=== PATIENT | male | born 1950 | race Caucasian/White ===

== ENCOUNTER 2021-04-11 09:43 | Emergency (ER) | payer MEDICARE, OTHER ==
[2021-04-11 09:54] VITALS: RESP 18; TEMP 97.1
--- NOTE | 2021-04-11 10:41 | ED ---
Male Urogenital HPI - General Chief complaint: Urogenital Stated complaint: Blood in Urine Time Seen by Provider: 04/11/21 09:53 Source: patient, RN notes reviewed Mode of arrival: ambulatory Limitations: no limitations - History of Present Illness Initial comments: This is a 70-year-old male with a prior history of prostate cancer status post radiation therapy about a year ago also history of a urinary aneurysm with a stent placement who states he developed hematuria this morning with dark colored bloody urine. He has some nausea generally doesn't feel well. The patient denies any history kidney stones or any problems other than the prostate cancer. He does have some suprapubic discomfort he states. Patient does state he is a decreased appetite is somewhat of an upset stomach recently over last week he's had some fever and sweats. No overt vomiting shortness breath or other complaints or modifying factors patient is not on blood thinners she does take aspirin - Related Data Home Medications Medication Instructions Recorded Confirmed Aspirin EC [Ecotrin Low Dose] 81 mg PO DAILY 04/11/21 04/11/21 Carvedilol [Coreg] 3.125 mg PO BID 04/11/21 04/11/21 Furosemide [Lasix] 20 mg PO DAILY PRN 04/11/21 04/11/21 Previous Rx's Medication Instructions Recorded Metoclopramide [Reglan] 10 mg PO ACHS #20 tab 04/11/21 Allergies Allergy/AdvReac Type Severity Reaction Status Date / Time No Known Allergies Allergy Verified 04/11/21 12:24 Review of Systems ROS Statement: Those systems with pertinent positive or pertinent negative responses have been documented in the HPI. ROS Other: All systems not noted in ROS Statement are negative. Past Medical History Past Medical History: Hypertension Additional Past Medical History / Comment(s): Prostate CA- History of Any Multi-Drug Resistant Organisms: None Reported Past Surgical History: Back Surgery, Coronary Bypass/CABG Additional Past Surgical History / Comment(s): AAA-repaired Past Psychological History: No Psychological Hx Reported Smoking Status: Former smoker Past Alcohol Use History: Rare Past Drug Use History: None Reported General Exam - General Exam Comments Initial Comments: This is a well-developed asthenic appearing male who is awake alert oriented 3 Limitations: no limitations General appearance: alert, in no apparent distress Head exam: Present: atraumatic, normocephalic, normal inspection Eye exam: Present: normal appearance, PERRL, EOMI. Absent: scleral icterus, conjunctival injection, periorbital swelling ENT exam: Present: normal exam, mucous membranes moist Neck exam: Present: normal inspection. Absent: tenderness, meningismus, lymphadenopathy Respiratory exam: Present: normal lung sounds bilaterally. Absent: respiratory distress, wheezes, rales, rhonchi, stridor Cardiovascular Exam: Present: regular rate, normal rhythm, normal heart sounds. Absent: systolic murmur, diastolic murmur, rubs, gallop, clicks GI/Abdominal exam: Present: soft, normal bowel sounds. Absent: distended, tenderness, guarding, rebound, rigid, bruit, pulsatile mass Extremities exam: Present: normal inspection, full ROM, normal capillary refill. Absent: tenderness, pedal edema, joint swelling, calf tenderness Back exam: Present: normal inspection Neurological exam: Present: alert, oriented X3, CN II-XII intact Psychiatric exam: Present: normal affect, normal mood Skin exam: Present: warm, dry, intact, normal color. Absent: rash Course Vital Signs 04/11/21 04/11/21 09:49 12:06 Temperature 97.1 F L Pulse Rate 85 75 Respiratory 18 18 Rate Blood Pressure 155/94 O2 Sat by Pulse 98 98 Oximetry Medical Decision Making - Medical Decision Making I did discuss the findings with the patient and with Dr. Lopes. Patient will follow-up, and the office will call and make an appointment - Lab Data Result diagrams: 04/11/21 11:43 04/11/21 10:46 Lab Results 04/11/21 04/11/21 04/11/21 Range/Units 10:46 10:46 10:46 WBC (3.8-10.6) k/uL RBC (4.30-5.90) m/uL Hgb (13.0-17.5) gm/dL Hct (39.0-53.0) % MCV (80.0-100.0) fL MCH (25.0-35.0) pg MCHC (31.0-37.0) g/dL RDW (11.5-15.5) % MPV PT 12.2 H (9.0-12.0) sec INR 1.2 H (<1.2) APTT 24.7 (22.0-30.0) sec Sodium 138 (137-145) mmol/L Potassium 3.8 (3.5-5.1) mmol/L Chloride 111 H (98-107) mmol/L Carbon Dioxide 23 (22-30) mmol/L Anion Gap 4 mmol/L BUN 10 (9-20) mg/dL Creatinine 0.68 (0.66-1.25) mg/dL Est GFR (CKD-EPI)AfAm >90 (>60 ml/min/1.73 sqM) Est GFR (CKD-EPI)NonAf >90 (>60 ml/min/1.73 sqM) Glucose 141 H (74-99) mg/dL Calcium 9.5 (8.4-10.2) mg/dL Total Bilirubin 1.1 (0.2-1.3) mg/dL AST 33 (17-59) U/L ALT 15 (4-49) U/L Alkaline Phosphatase 91 (38-126) U/L Creatine Kinase 49 L (55-170) U/L Total Protein 7.1 (6.3-8.2) g/dL Albumin 4.1 (3.5-5.0) g/dL Lipase 33 (23-300) U/L Urine Color Yellow Urine Appearance Clear (Clear) Urine pH 6.5 (5.0-8.0) Ur Specific [place] 1.021 (1.001-1.035) Urine Protein 1+ H (Negative) Urine Glucose (UA) Negative (Negative) Urine Ketones Negative (Negative) Urine Blood Large H (Negative) Urine Nitrite Negative (Negative) Urine Bilirubin Negative (Negative) Urine Urobilinogen 4.0 (<2.0) mg/dL Ur Leukocyte Esterase Negative (Negative) Urine RBC 105 H (0-5) /hpf Urine WBC 3 (0-5) /hpf Ur Squamous Epith Cells <1 (0-4) /hpf Urine Bacteria Rare H (None) /hpf Hyaline Casts 1 (0-2) /lpf Urine Mucus Few H (None) /hpf 04/11/21 Range/Units 11:43 WBC 2.7 L (3.8-10.6) k/uL RBC 4.37 (4.30-5.90) m/uL Hgb 13.8 (13.0-17.5) gm/dL Hct 38.8 L (39.0-53.0) % MCV 88.7 (80.0-100.0) fL MCH 31.6 (25.0-35.0) pg MCHC 35.6 (31.0-37.0) g/dL RDW 15.4 (11.5-15.5) % MPV 9.2 PT (9.0-12.0) sec INR (<1.2) APTT (22.0-30.0) sec Sodium (137-145) mmol/L Potassium (3.5-5.1) mmol/L Chloride (98-107) mmol/L Carbon Dioxide (22-30) mmol/L Anion Gap mmol/L BUN (9-20) mg/dL Creatinine (0.66-1.25) mg/dL Est GFR (CKD-EPI)AfAm (>60 ml/min/1.73 sqM) Est GFR (CKD-EPI)NonAf (>60 ml/min/1.73 sqM) Glucose (74-99) mg/dL Calcium (8.4-10.2) mg/dL Total Bilirubin (0.2-1.3) mg/dL AST (17-59) U/L ALT (4-49) U/L Alkaline Phosphatase (38-126) U/L Creatine Kinase (55-170) U/L Total Protein (6.3-8.2) g/dL Albumin (3.5-5.0) g/dL Lipase (23-300) U/L Urine Color Urine Appearance (Clear) Urine pH (5.0-8.0) Ur Specific [place] (1.001-1.035) Urine Protein (Negative) Urine Glucose (UA) (Negative) Urine Ketones (Negative) Urine Blood (Negative) Urine Nitrite (Negative) Urine Bilirubin (Negative) Urine Urobilinogen (<2.0) mg/dL Ur Leukocyte Esterase (Negative) Urine RBC (0-5) /hpf Urine WBC (0-5) /hpf Ur Squamous Epith Cells (0-4) /hpf Urine Bacteria (None) /hpf Hyaline Casts (0-2) /lpf Urine Mucus (None) /hpf - Radiology Data Radiology results: report reviewed (Imaging reviewed CAT scan shows evidence of a possible lesion in the right kidney please see complete report ultrasound shows evidence of cystic activity but no definitive lesion.), image reviewed Disposition Clinical Impression: Hematuria Disposition: HOME SELF-CARE Condition: Good Instructions (If sedation given, give patient instructions): Hematuria (ED), Acute Nausea and Vomiting (ED) Prescriptions: Metoclopramide [Reglan] 10 mg PO ACHS #20 tab Is patient prescribed a controlled substance at d/c from ED?: No Referrals: Jamir Ferrer MD [Primary Care Provider] - 1-2 days Edgard Lopes MD [STAFF PHYSICIAN] - 1-2 days
[2021-04-11 11:25] LABS: Appearance,Urine Clear (Clear); Bacteria,Urine Rare /hpf; Bilirubin,Urine Negative (Negative); Blood,Urine Large (Negative); Color,Urine Yellow; Glucose,Urine (UA) Negative (Negative); Hyaline Casts,Urine 1 /lpf (0-2); Ketones,Urine Negative (Negative); Leukocyte Esterase,Urine Negative (Negative); Mucus,Urine Few /hpf; Nitrite,Urine Negative (Negative); PH, Urine 6.5 (5.0-8.0); Protein,Urine 1+ (Negative); RBC,Urine 105 /hpf (0-5); Specific Gravity,Urine 1.021 (1.001-1.035); Squamous Epithelial Cell,Urine <1 /hpf (0-4); WBC,Urine 3 /hpf (0-5)
[2021-04-11 12:07] VITALS: BP 155/94; PULSE 75
[2021-04-11 12:12] LABS: INR 1.2 (<1.2); Partial Thromboplastin Time 24.7 sec (22.0-30.0); Prothrombin Time 12.2 sec (9.0-12.0)
[2021-04-11 12:15] LABS: ALT 15 U/L (4-49); AST 33 U/L (17-59); African American GFR (CKD) >90 (>60 ml/min/1.73 sqM); Albumin 4.1 g/dL (3.5-5.0); Alkaline Phosphatase 91 U/L (38-126); Anion Gap 4 mmol/L; Blood Urea Nitrogen 10 mg/dL (9-20); Calcium 9.5 mg/dL (8.4-10.2); Carbon Dioxide 23 mmol/L (22-30); Chloride 111 mmol/L (98-107); Creatine Kinase 49 U/L (55-170); Glucose 141 mg/dL (74-99); Lipase 33 U/L (23-300); Non-African American GFR(CKD) >90 (>60 ml/min/1.73 sqM); Potassium 3.8 mmol/L (3.5-5.1); Sodium 138 mmol/L (137-145); Total Bilirubin 1.1 mg/dL (0.2-1.3); Total Protein 7.1 g/dL (6.3-8.2)
--- NOTE | 2021-04-11 12:23 | CT ---
EXAMINATION TYPE: CT abdomen pelvis wo con DATE OF EXAM: 04/11/2021 COMPARISON: None HISTORY: gross hematuria, nausea CT DLP: 778.8 mGycm Automated exposure control for dose reduction was used. TECHNIQUE: Helical acquisition of images was performed from the lung bases through the pelvis. FINDINGS: LUNG BASES: The heart is enlarged and there is postoperative changes. Subsegmental changes at the harriet g bases most typical of atelectasis. LIVER/GB: There are numerous varices seen involving the abdomen. A gallstone is noted and there is a splenic granuloma. Correlate for hepatocellular disease. PANCREAS: Pancreas appears to be atrophic. SPLEEN: Spleen measures 15 cm compatible with splenomegaly.. ADRENALS: No significant abnormality is seen. KIDNEYS: No hydronephrosis or nephrolithiasis. Hypodense lesion involving the mid posterior cortex of the right kidney is indeterminate by noncontrast technique. Bladder is homogeneous. There appears to be metallic beads within the prostate gland. ADENOPATHY: None visualized. OSSEOUS STRUCTURES: Hypertrophic and degenerative change of the spine with postsurgical findings. Ar thropathy of the hips. BOWEL: No significant abnormality is seen. OTHER: A postsurgical change involving the aorta. No free fluid. Liver IMPRESSION: 1. No evidence of renal stone or calcification. Indeterminate right renal lesion by noncontrast techn ique posterior mid cortex measuring approximately 1.2 cm. 2. Aortic repair surgery. 3. 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 3. Cholelithiasis. 4. Fat-containing periumbilical hernia.
--- NOTE | 2021-04-11 14:31 | US ---
EXAMINATION TYPE: US kidneys/renal and bladder DATE OF EXAM: 04/11/2021 COMPARISON: CT 04/11/2021 CLINICAL HISTORY: Right renal mass seen on CT. EXAM MEASUREMENTS: Right Kidney: 10.4 x 6.1 x 5.1 cm Left Kidney: 11.7 x 4.5 x 5.1 cm Spleen: 14.7 cm Right Kidney: No hydronephrosis. Two cystic areas visualized, largest mid pole measuring 1.6 x 1.6 x 1.8 cm Left Kidney: No hydronephrosis or masses seen Bladder: Not distended Spleen: Enlarged There is no evidence for hydronephrosis at this point in time. No nephrolithiasis is seen. IMPRESSION: Right renal cysts
[2021-04-11 14:51] LABS: Basophils % (A) 0 %; Eosinophils # (A) 0.1 k/uL (0-0.7); Eosinophils % (A) 2 %; HCT 38.8 % (39.0-53.0); HGB 13.8 gm/dL (13.0-17.5); Lymphocytes # (A) 0.7 k/uL (1.0-4.8); Lymphocytes % (A) 27 %; MCH 31.6 pg (25.0-35.0); MCHC 35.6 g/dL (31.0-37.0); MCV 88.7 fL (80.0-100.0); Mean Platelet Volume 9.2; Monocytes # (A) 0.2 k/uL (0-1.0); Monocytes % (A) 6 %; Neutrophils # (A) 1.7 k/uL (1.3-7.7); Neutrophils % (A) 63 %; RBC 4.37 m/uL (4.30-5.90); RDW 15.4 % (11.5-15.5); WBC 2.7 k/uL (3.8-10.6)
[2021-04-11 14:57] LABS: Anisocytosis Slight; Basophils % (A) 0 %; Eosinophils # (A) 0.1 k/uL (0-0.7); Eosinophils % (A) 3 %; HCT 41.8 % (39.0-53.0); HGB 14.2 gm/dL (13.0-17.5); Lymphocytes % (A) 33 %; MCH 30.2 pg (25.0-35.0); MCHC 33.9 g/dL (31.0-37.0); MCV 89.1 fL (80.0-100.0); Mean Platelet Volume 8.4; Monocytes # (A) 0.2 k/uL (0-1.0); Monocytes % (A) 6 %; Neutrophils # (A) 1.8 k/uL (1.3-7.7); Neutrophils % (A) 57 %; WBC 3.1 k/uL (3.8-10.6)
[2021-04-11 15:26] LABS: Platelet Count 50 k/uL (150-450)
[2021-04-11 15:27] LABS: Platelet Count 49 k/uL (150-450)
== END 2021-04-11 15:27 | disposition home or self-care (01) ==
LOC: EC 09:43
DX: R31.0 Gross hematuria (principal); R10.30 Lower abdominal pain, unspecified; R11.0 Nausea; R63.0 Anorexia; I10 Essential (primary) hypertension; Z87.891 Personal history of nicotine dependence; Z79.899 Other long term (current) drug therapy
CPT/HCPCS: 36415; 74176; 76770; 80053; 81001; 82550; 83690; 85025; 85610; 85730; 99284

== ENCOUNTER 2021-04-22 11:23 | Emergency (ER) | payer MEDICARE, OTHER ==
[2021-04-22] MEDS ORDERED: SODIUM CHLORIDE 0.9% 1,000 ML IV STA (12:25)
--- NOTE | 2021-04-22 12:28 | ED ---
General Adult HPI - General Source: patient, RN notes reviewed Mode of arrival: ambulatory Limitations: no limitations <Harjinder Cabrera - Last Filed: 04/22/21 15:40> <Janett Flores - Last Filed: 04/22/21 17:22> - General Chief complaint: Shortness of Breath Stated complaint: revisit - blood in urine Time Seen by Provider: 04/22/21 11:35 - History of Present Illness Initial comments: Patient is a pleasant 70-year-old male presenting to the emergency department with concern for weight loss and hematuria. Symptoms have been intermittent but progressive over the past several weeks to month. Patient has lost around 20 pounds of last month. Decreased appetite. Patient has some mild associated lightheadedness and dyspnea. No abdominal pain. Patient has noticed varying colors of his urine from [place] 2 red with possible blood clots at times. (Harjinder Cabrera) - Related Data Home Medications Medication Instructions Recorded Confirmed Carvedilol [Coreg] 3.125 mg PO BID 04/11/21 04/22/21 Ondansetron HCl [Zofran] 4 mg PO Q8H PRN 04/22/21 04/22/21 Allergies Allergy/AdvReac Type Severity Reaction Status Date / Time No Known Allergies Allergy Verified 04/22/21 11:25 Review of Systems ROS Other: All systems not noted in ROS Statement are negative. Constitutional: Denies: fever Eyes: Denies: eye pain ENT: Denies: ear pain Respiratory: Reports: as per HPI, dyspnea. Denies: cough Cardiovascular: Denies: chest pain Endocrine: Reports: fatigue Gastrointestinal: Denies: abdominal pain, vomiting Genitourinary: Reports: as per HPI, hematuria Musculoskeletal: Denies: back pain Skin: Denies: rash Neurological: Denies: weakness <Harjinder Cabrera - Last Filed: 04/22/21 15:40> ROS Other: All systems not noted in ROS Statement are negative. <Janett Flores - Last Filed: 04/22/21 17:22> ROS Statement: Those systems with pertinent positive or pertinent negative responses have been documented in the HPI. Past Medical History Past Medical History: Hypertension Additional Past Medical History / Comment(s): Prostate CA- History of Any Multi-Drug Resistant Organisms: None Reported Past Surgical History: Back Surgery, Coronary Bypass/CABG Additional Past Surgical History / Comment(s): AAA-repaired Past Psychological History: No Psychological Hx Reported Smoking Status: Former smoker Past Alcohol Use History: Rare Past Drug Use History: None Reported <Harjinder Cabrera - Last Filed: 04/22/21 15:40> General Exam Limitations: no limitations General appearance: alert, in no apparent distress Head exam: Present: normocephalic Eye exam: Present: normal appearance ENT exam: Present: mucous membranes dry Neck exam: Present: normal inspection Respiratory exam: Present: normal lung sounds bilaterally Cardiovascular Exam: Present: regular rate, normal rhythm GI/Abdominal exam: Present: soft. Absent: distended, tenderness, guarding Extremities exam: Present: normal inspection Back exam: Present: normal inspection. Absent: CVA tenderness (R), CVA tenderness (L) Neurological exam: Present: alert Psychiatric exam: Present: normal affect, normal mood Skin exam: Present: normal color <Harjinder Cabrera - Last Filed: 04/22/21 15:40> Course Vital Signs 04/22/21 04/22/21 04/22/21 11:26 12:30 14:30 Temperature 97.8 F Pulse Rate 74 63 63 Respiratory 16 18 18 Rate Blood Pressure 176/94 150/80 159/97 O2 Sat by Pulse 97 97 98 Oximetry 04/22/21 16:19 Temperature 97.2 F L Pulse Rate 65 Respiratory 18 Rate Blood Pressure 160/96 O2 Sat by Pulse 100 Oximetry EKG Findings - EKG Comments: EKG Findings:: No sinus rhythm with rate of 64. [place] 164. QRS 86. QT 428. QTC 441. Normal axis. Normal QRS. No acute ST change. <Harjinder Cabrera - Last Filed: 04/22/21 15:40> Medical Decision Making - Lab Data Result diagrams: 04/22/21 13:50 04/22/21 12:30 - Radiology Data Radiology results: image reviewed (Chest and abdominal x-ray revealed no acute abnormality) <Harjinder Cabrera Last Filed: 04/22/21 15:40> - Lab Data Result diagrams: 04/22/21 13:50 04/22/21 12:30 <Janett Flores - Last Filed: 04/22/21 17:22> - Lab Data Lab Results 04/22/21 04/22/21 04/22/21 Range/Units 12:30 12:30 12:30 WBC (3.8-10.6) k/uL RBC (4.30-5.90) m/uL Hgb (13.0-17.5) gm/dL Hct (39.0-53.0) % MCV (80.0-100.0) fL MCH (25.0-35.0) pg MCHC (31.0-37.0) g/dL RDW (11.5-15.5) % Plt Count (150-450) k/uL MPV Neutrophils % % Lymphocytes % % Monocytes % % Eosinophils % % Basophils % % Neutrophils # (1.3-7.7) k/uL Lymphocytes # (1.0-4.8) k/uL Monocytes # (0-1.0) k/uL Eosinophils # (0-0.7) k/uL Basophils # (0-0.2) k/uL PT 12.5 H (9.0-12.0) sec INR 1.2 H (<1.2) APTT 25.2 (22.0-30.0) sec D-Dimer 5.36 H (<0.60) mg/L FEU Sodium 138 (137-145) mmol/L Potassium 4.3 (3.5-5.1) mmol/L Chloride 109 H (98-107) mmol/L Carbon Dioxide 23 (22-30) mmol/L Anion Gap 6 mmol/L BUN 12 (9-20) mg/dL Creatinine 0.72 (0.66-1.25) mg/dL Est GFR (CKD-EPI)AfAm >90 (>60 ml/min/1.73 sqM) Est GFR (CKD-EPI)NonAf >90 (>60 ml/min/1.73 sqM) Glucose 132 H (74-99) mg/dL Calcium 9.2 (8.4-10.2) mg/dL Total Bilirubin 1.3 (0.2-1.3) mg/dL AST 38 (17-59) U/L ALT 15 (4-49) U/L Alkaline Phosphatase 84 (38-126) U/L Creatine Kinase 43 L (55-170) U/L Troponin I (0.000-0.034) ng/mL Total Protein 7.2 (6.3-8.2) g/dL Albumin 4.1 (3.5-5.0) g/dL Amylase 42 (30-110) U/L Lipase 48 (23-300) U/L Urine Color Light Red Urine Appearance Clear (Clear) Urine pH 7.5 (5.0-8.0) Ur Specific [place] 1.014 (1.001-1.035) Urine Protein 1+ H (Negative) Urine Glucose (UA) Negative (Negative) Urine Ketones Negative (Negative) Urine Blood Large H (Negative) Urine Nitrite Negative (Negative) Urine Bilirubin Negative (Negative) Urine Urobilinogen 4.0 (<2.0) mg/dL Ur Leukocyte Esterase Negative (Negative) Urine RBC >182 H (0-5) /hpf Urine WBC 4 (0-5) /hpf Urine Bacteria Rare H (None) /hpf Urine Mucus Rare H (None) /hpf 04/22/21 04/22/21 Range/Units 12:30 13:50 WBC 2.8 L (3.8-10.6) k/uL RBC 4.46 (4.30-5.90) m/uL Hgb 13.8 (13.0-17.5) gm/dL Hct 39.8 (39.0-53.0) % MCV 89.4 (80.0-100.0) fL MCH 30.9 (25.0-35.0) pg MCHC 34.6 (31.0-37.0) g/dL RDW 15.4 (11.5-15.5) % Plt Count 51 L (150-450) k/uL MPV 9.0 Neutrophils % 60 % Lymphocytes % 29 % Monocytes % 6 % Eosinophils % 3 % Basophils % 1 % Neutrophils # 1.7 (1.3-7.7) k/uL Lymphocytes # 0.8 L (1.0-4.8) k/uL Monocytes # 0.2 (0-1.0) k/uL Eosinophils # 0.1 (0-0.7) k/uL Basophils # 0.0 (0-0.2) k/uL PT (9.0-12.0) sec INR (<1.2) APTT (22.0-30.0) sec D-Dimer (<0.60) mg/L FEU Sodium (137-145) mmol/L Potassium (3.5-5.1) mmol/L Chloride (98-107) mmol/L Carbon Dioxide (22-30) mmol/L Anion Gap mmol/L BUN (9-20) mg/dL Creatinine (0.66-1.25) mg/dL Est GFR (CKD-EPI)AfAm (>60 ml/min/1.73 sqM) Est GFR (CKD-EPI)NonAf (>60 ml/min/1.73 sqM) Glucose (74-99) mg/dL Calcium (8.4-10.2) mg/dL Total Bilirubin (0.2-1.3) mg/dL AST (17-59) U/L ALT (4-49) U/L Alkaline Phosphatase (38-126) U/L Creatine Kinase (55-170) U/L Troponin I <0.012 (0.000-0.034) ng/mL Total Protein (6.3-8.2) g/dL Albumin (3.5-5.0) g/dL Amylase (30-110) U/L Lipase (23-300) U/L Urine Color Urine Appearance (Clear) Urine pH (5.0-8.0) Ur Specific [place] (1.001-1.035) Urine Protein (Negative) Urine Glucose (UA) (Negative) Urine Ketones (Negative) Urine Blood (Negative) Urine Nitrite (Negative) Urine Bilirubin (Negative) Urine Urobilinogen (<2.0) mg/dL Ur Leukocyte Esterase (Negative) Urine RBC (0-5) /hpf Urine WBC (0-5) /hpf Urine Bacteria (None) /hpf Urine Mucus (None) /hpf Disposition <Harjinder Cabrera - Last Filed: 04/22/21 15:40> Is patient prescribed a controlled substance at d/c from ED?: No <Janett Flores - Last Filed: 04/22/21 17:22> Clinical Impression: Hematuria Disposition: HOME SELF-CARE Condition: Stable Additional Instructions: Follow up in the urology office [place], it is very important that you follow up for further testing and diagnosis. Referrals: Jamir Ferrer MD [Primary Care Provider] - 1-2 days
[2021-04-22 13:00] LABS: ALT 15 U/L (4-49); AST 38 U/L (17-59); African American GFR (CKD) >90 (>60 ml/min/1.73 sqM); Albumin 4.1 g/dL (3.5-5.0); Alkaline Phosphatase 84 U/L (38-126); Amylase 42 U/L (30-110); Anion Gap 6 mmol/L; Blood Urea Nitrogen 12 mg/dL (9-20); Calcium 9.2 mg/dL (8.4-10.2); Carbon Dioxide 23 mmol/L (22-30); Chloride 109 mmol/L (98-107); Creatine Kinase 43 U/L (55-170); Glucose 132 mg/dL (74-99); Lipase 48 U/L (23-300); Non-African American GFR(CKD) >90 (>60 ml/min/1.73 sqM); Sodium 138 mmol/L (137-145); Total Bilirubin 1.3 mg/dL (0.2-1.3); Total Protein 7.2 g/dL (6.3-8.2)
[2021-04-22 13:02] LABS: Potassium 4.3 mmol/L (3.5-5.1)
[2021-04-22 13:11] LABS: INR 1.2 (<1.2); Partial Thromboplastin Time 25.2 sec (22.0-30.0); Prothrombin Time 12.5 sec (9.0-12.0)
[2021-04-22 13:15] LABS: Appearance,Urine Clear (Clear); Color,Urine Light Red; PH, Urine 7.5 (5.0-8.0); Protein,Urine 1+ (Negative); Specific Gravity,Urine 1.014 (1.001-1.035)
[2021-04-22 13:16] LABS: Bacteria,Urine Rare /hpf; Bilirubin,Urine Negative (Negative); Blood,Urine Large (Negative); Glucose,Urine (UA) Negative (Negative); Ketones,Urine Negative (Negative); Leukocyte Esterase,Urine Negative (Negative); Mucus,Urine Rare /hpf; Nitrite,Urine Negative (Negative); RBC,Urine >182 /hpf (0-5); WBC,Urine 4 /hpf (0-5)
[2021-04-22 13:21] LABS: D-Dimer 5.36 mg/L FEU (<0.60)
--- NOTE | 2021-04-22 13:22 | XR ---
EXAMINATION TYPE: XR chest 2V DATE OF EXAM: 04/22/2021 COMPARISON: None HISTORY: 70 year-old male shortness of breath, dyspnea TECHNIQUE: PA and lateral views FINDINGS: Median sternotomy wires and post-CABG clips in the mediastinum. The cardiomediastinal silhouette, aor ta, and pulmonary vasculature are within normal limits. Lungs and pleural spaces are clear. IMPRESSION: Post-CABG changes. No acute cardiopulmonary process.
--- NOTE | 2021-04-22 13:24 | XR ---
EXAMINATION TYPE: XR KUB DATE OF EXAM: 04/22/2021 Comparison: None Clinical History: 70-year-old male Hematuria Findings: Lung bases are clear. No evidence for free intraperitoneal air. No dilated small bowel or air-fluid levels. Moderate to large stool burden. Abdominal aortobiiliac stents. Embolization coil material right paramedian sacral region. Some brachytherapy seeds embedded in the prostate gland region. L3-L4 posterior and interbody fusion hardware. No definite suspicious calcification is seen. Vascular calcifications in the left side of the pelvis. Impression: No evidence for free air or bowel obstruction. There is moderate to large stool burden suggesting con stipation.
[2021-04-22 13:53] LABS: Basophils % (A) 1 %; Eosinophils # (A) 0.1 k/uL (0-0.7); Eosinophils % (A) 3 %; HCT 39.8 % (39.0-53.0); HGB 13.8 gm/dL (13.0-17.5); Lymphocytes # (A) 0.8 k/uL (1.0-4.8); Lymphocytes % (A) 29 %; MCH 30.9 pg (25.0-35.0); MCHC 34.6 g/dL (31.0-37.0); MCV 89.4 fL (80.0-100.0); Monocytes # (A) 0.2 k/uL (0-1.0); Monocytes % (A) 6 %; Neutrophils # (A) 1.7 k/uL (1.3-7.7); Neutrophils % (A) 60 %; RBC 4.46 m/uL (4.30-5.90); RDW 15.4 % (11.5-15.5); WBC 2.8 k/uL (3.8-10.6)
[2021-04-22 14:10] LABS: Platelet Count 51 k/uL (150-450)
[2021-04-22 15:55] VITALS: RESP 18
--- NOTE | 2021-04-22 16:42 | CT ---
EXAMINATION TYPE: CT angio chest DATE OF EXAM: 04/22/2021 4:25 PM COMPARISON: Same day radiographs. HISTORY: dyspnea CT DLP: 375.4 mGycm Automated exposure control for dose reduction was used. CONTRAST: CTA scan of the thorax is performed with IV Contrast, patient injected with 100 mL of Isovue 370, pul monary embolism protocol. MIP images are created and reviewed. FINDINGS: LUNGS: There is mild dependent atelectasis. Otherwise the lungs are grossly clear, there is no concer russ parenchymal mass or nodule identified. There is no pleural effusion or pneumothorax seen. The tracheobronchial tree is patent. MEDIASTINUM: There is satisfactory enhancement of the pulmonary artery and its branches, there is no CT evidence for pulmonary embolism. There are no greater than 1 cm hilar or mediastinal lymph nodes. No pericardial effusion is seen. OTHER: Hepatosplenomegaly with upper abdominal varices seen and better characterized on concurrent d edicated CT. IMPRESSION: NO ACUTE PULMONARY EMBOLUS OR CARDIOPULMONARY ABNORMALITY.
--- NOTE | 2021-04-22 17:00 | CT ---
EXAMINATION TYPE: CT abdomen pelvis w con DATE OF EXAM: 04/22/2021 COMPARISON: CT 04/11/2021. HISTORY: hematuria CT DLP: 1375.7 mGycm Automated exposure control for dose reduction was used. TECHNIQUE: Helical acquisition of images was performed from the lung bases through the pelvis. CONTRAST: Performed without Oral Contrast and with IV Contrast, patient injected with 100 mL of Isovue 370. FINDINGS: LUNG BASES: No significant abnormality is appreciated. LIVER/GB: Hepatic steatosis with questionable lobular hepatic contour. A few scattered small benign h epatic osseous lesions are seen. Cholelithiasis without acute cholecystitis. Upper abdominal and esop hageal varices seen. Also recanalization of the umbilical vein is seen. PANCREAS: No significant abnormality is seen. SPLEEN: Splenomegaly. ADRENALS: No significant abnormality is seen. KIDNEYS: No acute abnormality is seen. A 1.2 cm simple right renal parapelvic cyst and additional few bilateral simple renal cortical cysts measuring up to 0.5 cm. FREE AIR: No free air is visualized. RETROPERITONEAL ADENOPATHY: None visualized REPRODUCTIVE ORGANS: No significant abnormality is seen URINARY BLADDER: Partially decompressed urinary bladder with wall thickening. PELVIC ADENOPATHY: None visualized. OSSEOUS STRUCTURES: No acute abnormality is seen. L3-L4 posterior instrument fusion noted. BOWEL: No significant abnormality is seen. OTHER: Approximately 4 cm infrarenal abdominal aortic aneurysm status post aortoiliac graft stenting. IMPRESSION: REDEMONSTRATED SPLENOMEGALY WITH NUMEROUS UPPER ABDOMINAL VARICES. Again correlate for liver disease with portal hypertension. Limited evaluation of the portal vein due to contrast admixture artifact. I f there is continued clinical concern ultrasound correlation may be obtained. Otherwise no acute abnormality. Nonspecific urinary bladder wall thickening, correlate for cystitis versus decompressed state. Simple renal cysts. Additional chronic findings as above.
[2021-04-22 17:32] VITALS: BP 160/90; PULSE 66; TEMP 98.2
== END 2021-04-22 17:31 | disposition home or self-care (01) ==
LOC: EC 11:23
DX: R31.9 Hematuria, unspecified (principal); I10 Essential (primary) hypertension; Z87.891 Personal history of nicotine dependence; Z79.899 Other long term (current) drug therapy; Z95.1 Presence of aortocoronary bypass graft
CPT/HCPCS: 96360 ×2; 96361 ×5; 99284 ×3; 36415; 93005; 36410; 76937; 85379; 84153; 80053; 82150; 82550; 83690; 84484; 85025; 85610; 85730; 81001; 71046; 74018; 71275; 74177; Q9967

== ENCOUNTER 2021-04-22 20:06 | Emergency (ER) | payer MEDICARE, OTHER ==
[2021-04-22 20:29] VITALS: BP 160/84; PULSE 67; RESP 18; TEMP 97.8
--- NOTE | 2021-04-22 21:28 | ED ---
General Adult HPI - General Chief complaint: Dizziness Stated complaint: Syncope Time Seen by Provider: 04/22/21 20:54 Source: patient Mode of arrival: ambulatory Limitations: no limitations - History of Present Illness Initial comments: The patient was seen and evaluated earlier today, he has gross hematuria with abnormality of the bladder and computed tomography scan concerning for bladder cancer. He is to follow up with urology. His earlier course was complicated by difficult IV access, ultrasound guided IV which is displaced and he had contrast extravasation into his arm. Patient states that upon returning home he had an episode of lightheadedness he believes it's a reaction to the IV contrast and due to the swelling in his arm. Patient states he just wanted to come back and have his arm evaluated due to swelling. He states that he plans to apply to heating pad for comfort. Patient states that he doesn't want any further workup, he will not consent to any IV access or blood draws at this time. - Related Data Home Medications Medication Instructions Recorded Confirmed Carvedilol [Coreg] 3.125 mg PO BID 04/11/21 04/22/21 Ondansetron HCl [Zofran] 4 mg PO Q8H PRN 04/22/21 04/22/21 Allergies Allergy/AdvReac Type Severity Reaction Status Date / Time No Known Allergies Allergy Verified 04/22/21 20:29 Review of Systems ROS Statement: Those systems with pertinent positive or pertinent negative responses have been documented in the HPI. ROS Other: All systems not noted in ROS Statement are negative. Past Medical History Past Medical History: Hypertension Additional Past Medical History / Comment(s): Prostate CA- History of Any Multi-Drug Resistant Organisms: None Reported Past Surgical History: Back Surgery, Coronary Bypass/CABG Additional Past Surgical History / Comment(s): AAA-repaired Past Psychological History: No Psychological Hx Reported Smoking Status: Former smoker Past Alcohol Use History: Rare Past Drug Use History: None Reported General Exam - General Exam Comments Initial Comments: Physical Exam GENERAL: Patient is well-developed and well-nourished. Patient is nontoxic and well-hydrated and is in no distress. HENT: Normocephalic, Atraumatic. EYES: PERRL, EOMI PULMONARY: Unlabored respirations. CARDIOVASCULAR: RRR Warm and well perfused extremities ABDOMEN: Non-distended SKIN: No rashes or bruising : Deferred NEUROLOGIC: Alert and oriented Normal speech Normal gait MUSCULOSKELETAL: There is edema of the right arm most pronounced in the antecubital fossa, no hives or signs of ALLERGIC reaction PSYCHIATRIC: No SI/HI Limitations: no limitations Course Vital Signs 04/22/21 20:23 Temperature 97.8 F Pulse Rate 67 Respiratory 18 Rate Blood Pressure 160/84 O2 Sat by Pulse 98 Oximetry Medical Decision Making - Medical Decision Making Patient was seen and evaluated history is obtained from patient Patient with edema of the arm concerned that he is having lightheadedness after exposure to IV contrast No other signs of ALLERGIC reaction, no shortness of breath palpitations or wheezing, no hives Patient does have edema of the arm from extravasation we'll treat symptomatically with heat and ice at home, will follow with urology X and previous discharge report did not have Dr. Ruiz's name on it though the patient had artery had a appointment scheduled I did provide this information on discharge from this visit. Disposition Clinical Impression: Extravasation injury, Lightheadedness Disposition: HOME SELF-CARE Condition: Stable Is patient prescribed a controlled substance at d/c from ED?: No Referrals: Jamir Ferrer MD [Primary Care Provider] - 1-2 days Gino Mcclendon MD [STAFF PHYSICIAN] - 1-2 days
== END 2021-04-22 21:34 | disposition home or self-care (01) ==
LOC: EC 20:06
DX: R42 Dizziness and giddiness (principal); T80.89XA Other complications following infusion, transfusion and therapeutic injection, initial encounter; R60.0 Localized edema; I10 Essential (primary) hypertension; Z79.899 Other long term (current) drug therapy; Z95.1 Presence of aortocoronary bypass graft; Z87.891 Personal history of nicotine dependence; Z85.46 Personal history of malignant neoplasm of prostate
CPT/HCPCS: 99284

== ENCOUNTER → 2021-05-06 | Outpatient (CLI) | payer MEDICARE, OTHER ==
[2021-05-06 12:28] LABS: Basophils % (A) 1 %; Eosinophils # (A) 0.1 k/uL (0-0.7); Eosinophils % (A) 3 %; HCT 42.3 % (39.0-53.0); HGB 14.6 gm/dL (13.0-17.5); Lymphocytes # (A) 1.4 k/uL (1.0-4.8); Lymphocytes % (A) 41 %; MCH 31.3 pg (25.0-35.0); MCHC 34.4 g/dL (31.0-37.0); MCV 90.9 fL (80.0-100.0); Monocytes # (A) 0.2 k/uL (0-1.0); Monocytes % (A) 5 %; Neutrophils # (A) 1.6 k/uL (1.3-7.7); Neutrophils % (A) 47 %; RBC 4.65 m/uL (4.30-5.90); RDW 15.7 % (11.5-15.5); WBC 3.4 k/uL (3.8-10.6)
[2021-05-06 13:17] LABS: Platelet Count 63 k/uL (150-450)
[2021-05-06 19:06] LABS: Protein, Total 7.1 g/dL (6.2-8.2)
[2021-05-06 19:09] LABS: % Iron Saturation 58.77 (15.00-50.00); African American GFR (CKD) 112.4 (60.0-200.0); Albumin 4.3 g/dL (3.80-4.90); Albumin/Globulin Ratio 1.59 (1.60-3.17); Anion Gap 2.1 mmol/L (4.00-12.00); BUN/Creat Ratio 18.57 Ratio (12.00-20.00); Calcium 8.8 mg/dL (8.7-10.3); Carbon Dioxide 24.9 mmol/L (21.6-31.8); Chol/HDL Ratio 3.93; Globulin 2.7 g/dL (1.6-3.3); LDL Cholesterol,Calculated 106.2 mg/dL (0.0-131.0); Potassium 3.8 mmol/L (3.5-5.5); Total Bilirubin 1.2 mg/dL (0.2-1.2); VLDL Calculation 25.8 mg/dL (5.00-40.00)
[2021-05-06 19:15] LABS: Ferritin 78.7 ng/mL (22.0-322.0)
[2021-05-06 19:42] LABS: Folate, Serum 12.1 ng/mL
[2021-05-06 20:37] LABS: Hepatitis A Antibody IgM Non-Reactive (Non-Reactive); Hepatitis B Core IgM Non-Reactive (Non-Reactive); Hepatitis B Surface Antigen Non-Reactive (Non-Reactive); Hepatitis C IgG Antibody Reactive (Non-Reactive)
[2021-05-07 14:17] LABS: Albumin 4.21 g/dL (3.80-4.90); Gamma Globulin 1.26 g/dL (0.70-1.50)
== END | disposition home or self-care (01) ==
LOC: LABWHC1 10:58
PROVIDERS: ATTEND Internal Medicine
DX: D72.819 Decreased white blood cell count, unspecified (principal)
CPT/HCPCS: 36415; 80053; 80061; 80074; 82607; 82728; 82746; 83540; 83550; 83615; 84165; 84443; 85025; 87522

== ENCOUNTER → 2022-04-24 | Outpatient (CLI) | payer MEDICARE, OTHER ==
[2022-04-24 15:53] LABS: Basophils # (A) 0.01 X 10*3/uL (0.00-0.10); Basophils % (A) 0.4 %; Eosinophils # (A) 0.08 X 10*3/uL (0.04-0.35); Eosinophils % (A) 2.8 %; HCT 42.8 % (39.6-50.0); HGB 14.6 g/dL (13.0-17.0); Immature Grans, Automated 0.4 %; Lymphocytes # (A) 0.95 X 10*3/uL (0.90-5.00); Lymphocytes % (A) 33.6 %; MCH 31.9 pg (27.0-32.0); MCHC 34.1 g/dL (32.0-37.0); MCV 93.4 fL (80.0-97.0); Mean Platelet Volume 11.6 fL (9.5-12.2); Monocytes # (A) 0.25 X 10*3/uL (0.20-1.00); Monocytes % (A) 8.8 %; NRBC Per 100 WBC 0 /100 WBCS (0.0-0.0); Neutrophils # (A) 1.53 X 10*3/uL (1.80-7.70); Platelet Count 46 X 10*3/uL (140-440); RBC 4.58 X 10*6/uL (4.40-5.60); RDW 14.5 % (11.5-14.5); WBC 2.83 X 10*3/uL (4.50-10.00)
[2022-04-24 15:54] LABS: Acanthocytes 2+; Immature Platelet Fraction 6.6 % (1.1-6.1)
[2022-04-24 16:35] LABS: Chol/HDL Ratio 3.42 Ratio; LDL Cholesterol,Calculated 91.7 mg/dL (0.0-131.0)
[2022-04-24 16:58] LABS: ALT 18 U/L (10-49); AST 36 U/L (14-35); African American GFR (CKD) 102.4 (60.0-200.0); Albumin 4.3 g/dL (3.8-4.9); Albumin/Globulin Ratio 1.41 (1.60-3.17); Alkaline Phosphatase 77 U/L (41-126); BUN/Creat Ratio 11.92 Ratio (12.00-20.00); Blood Urea Nitrogen 10.3 mg/dL (9.0-27.0); Calcium 9.2 mg/dL (8.7-10.3); Carbon Dioxide 20.9 mmol/L (20.0-27.5); Chloride 108 mmol/L (96-109); Glucose 135 mg/dL (70-110); Non-African American GFR(CKD) 88.3 (60.0-200.0); PSA Annual Screen <0.014 ng/mL (0.000-4.000); Potassium 4.1 mmol/L (3.5-5.5); Sodium 140 mmol/L (135-145); Total Protein 7.3 g/dL (6.2-8.2)
== END | disposition home or self-care (01) ==
LOC: LABWHC1 09:39
PROVIDERS: ATTEND Internal Medicine
DX: I25.10 Atherosclerotic heart disease of native coronary artery without angina pectoris (principal); Z85.46 Personal history of malignant neoplasm of prostate
CPT/HCPCS: 80061; 80053; 84443; 85025; 36415; G0103

== ENCOUNTER → 2022-05-22 | Outpatient (CLI) | payer MEDICARE ==
--- NOTE | 2022-05-22 21:14 | CTL ---
EXAMINATION TYPE: CT Low Dose Lung DATE OF EXAM ORDERED: 05/22/2022 HISTORY: Personal history of tobacco use. Lung cancer screening CT DLP: 115.[address] CTDI: 2.80 mGy Automated exposure control for dose reduction was used. SCREENING VISIT: Initial COMPARISON: CTA chest 04/22/2021 TECHNIQUE: Low dose computed tomography scan was performed through the chest at 1 mm thick sections a nd reconstructed images in the coronal plane at [address] DIAGNOSTIC QUALITY: Satisfactory FINDINGS: LUNG NODULES: Present, detailed below: 1. There is a 0.4 cm nodule in the posterior right midlung. Series 4 image 230. Follow-up exam in 6 m [facility] is recommended. LUNGS: COPD: Severity: None Fibrosis: Severity: None Lymph nodes: None Other findings: Some minimal compressive atelectasis may be present within the right lung posteriorly . RIGHT PLEURAL SPACE: Effusion: None Calcification: None Thickening: None Pneumothorax: None LEFT PLEURAL SPACE: Effusion: None Calcification: None Thickening: None Pneumothorax: None HEART: Heart Size: Normal Coronary calcification: Moderate Pericardial effusion: None OTHER FINDINGS: Upper abdomen: Portion of the spleen visualized appears prominent. Additional evaluation for splenome alfred is recommended. Bony thorax: Normal Supraclavicular region: Normal Other: Ascending thoracic aorta at the level the main pulmonary artery measures 3.7 cm. The main pul monary artery at the bifurcation measures 2.1 cm. IMPRESSION: 1. 0.4 cm posterior right lung nodule. Follow-up exam in 6 months is recommended. FOLLOW UP CT CHEST RECOMMENDATION: Follow-up chest CT [address] LUNG RAD: Lung-Rad 3 Probably Benign
== END | disposition home or self-care (01) ==
LOC: RADCTMAIN 14:28
PROVIDERS: ATTEND Internal Medicine
DX: Z12.2 Encounter for screening for malignant neoplasm of respiratory organs (principal); R91.1 Solitary pulmonary nodule; Z87.891 Personal history of nicotine dependence
CPT/HCPCS: 71271

== ENCOUNTER 2022-06-20 06:41 | Day surgery (SDC) | payer MEDICARE, OTHER ==
[2022-06-19 12:30] VITALS: BMI 26.7
[~2022-06-20 06:41] MED LIST: LACTATED RINGERS 1,000 ML IV SCH; LIDOCAINE 1% (10MG/ML) FOR IV START INTRADERMA PRN
[2022-06-20 07:19] VITALS: TEMP 97
[2022-06-20] MEDS ORDERED: MIDAZOLAM 2 MG/2 ML VIAL ONE (07:44)
[2022-06-20] MEDS ORDERED: PROPOFOL 10 MG/ML 20 ML VIAL IV ONE (07:44)
[2022-06-20] MEDS ORDERED: fentaNYL (PF) 50 MCG/ML 2 ML AMP ONE (07:44)
[2022-06-20 08:31] VITALS: RESP 16
[2022-06-20 08:44] VITALS: BP 158/87; PULSE 64
[2022-06-20 09:10] LABS: Basophils % (A) 0 %; Eosinophils # (A) 0.1 k/uL (0-0.7); Eosinophils % (A) 3 %; HCT 44.7 % (39.0-53.0); HGB 15.8 gm/dL (13.0-17.5); Lymphocytes # (A) 1.2 k/uL (1.0-4.8); Lymphocytes % (A) 42 %; MCH 34.3 pg (25.0-35.0); MCHC 35.4 g/dL (31.0-37.0); MCV 96.8 fL (80.0-100.0); Mean Platelet Volume 10.3; Monocytes # (A) 0.2 k/uL (0-1.0); Monocytes % (A) 7 %; Neutrophils # (A) 1.2 k/uL (1.3-7.7); Neutrophils % (A) 44 %; RBC 4.62 m/uL (4.30-5.90); RDW 14.9 % (11.5-15.5); Reticulocyte % 1.8 % (0.5-2.0); WBC 2.7 k/uL (3.8-10.6)
[2022-06-20 09:17] LABS: Platelet Count 52 k/uL (150-450)
--- NOTE | 2022-06-20 09:51 | PCN ---
PROCEDURE NOTE PREOPERATIVE DIAGNOSIS: Thrombocytopenia. POSTOPERATIVE DIAGNOSIS: Thrombocytopenia. ANESTHESIA: Procedure was performed with local anesthesia as well as general anesthesia as well as systemic sedation. DESCRIPTION OF PROCEDURE: The patient was placed in the right lateral decubitus position. Betadine preparation was performed for the skin as well as alcohol . Local 1% lidocaine was used to anesthetize the skin as well as the periosteum . A 4-inch Jamshidi needle was used to access the bone marrow with aspirate and core obtained. Blood loss from the procedure was less than 1 mL. He tolerated well without complications, and we will send for Flow- FISH cytogenetics and next-generation sequencing. MMODL / IJN: [id number] /
[2022-06-20 13:59] LABS: RBC Morphology Normal
== END 2022-06-20 08:55 | disposition home or self-care (01) ==
LOC: OR 06:41
PROVIDERS: ATTEND Internal Medicine Hematology & Oncology
DX: D69.6 Thrombocytopenia, unspecified (principal); I25.10 Atherosclerotic heart disease of native coronary artery without angina pectoris; C61 Malignant neoplasm of prostate; Z95.1 Presence of aortocoronary bypass graft; Z79.82 Long term (current) use of aspirin; Z79.899 Other long term (current) drug therapy; Z87.891 Personal history of nicotine dependence
CPT/HCPCS: 85025; 85045; 38222; J2250; J3010; J2704

== ENCOUNTER → 2022-07-03 | Outpatient (CLI) | payer MEDICARE, OTHER ==
[2022-07-03 16:36] LABS: African American GFR (CKD) 100.6 (60.0-200.0); Albumin 4.5 g/dL (3.8-4.9); Albumin/Globulin Ratio 1.5 (1.60-3.17); Anion Gap 11.6 mmol/L (10.00-18.00); BUN/Creat Ratio 11.22 Ratio (12.00-20.00); Blood Urea Nitrogen 10.1 mg/dL (9.0-27.0); Calcium 9.4 mg/dL (8.7-10.3); Carbon Dioxide 23.4 mmol/L (20.0-27.5); Non-African American GFR(CKD) 86.8 (60.0-200.0); Potassium 4.2 mmol/L (3.5-5.5); Total Protein 7.5 g/dL (6.2-8.2)
[2022-07-03 20:54] LABS: HIV 2 AB Non-Reactive (Non-Reactive); HIV AB P24 Non-Reactive (Non-Reactive); HIV P24 AG Non-Reactive (Non-Reactive)
== END | disposition home or self-care (01) ==
LOC: LABWHC1 09:56
PROVIDERS: ATTEND Internal Medicine
DX: D69.6 Thrombocytopenia, unspecified (principal); R06.02 Shortness of breath; Z71.3 Dietary counseling and surveillance
CPT/HCPCS: 36415; 80053; 83615; 87390

== ENCOUNTER → 2023-01-28 | Outpatient (CLI) | payer MEDICARE, OTHER ==
[2023-01-16 14:41] LABS: African American GFR (CKD) >90 (>60 ml/min/1.73 sqM); Blood Urea Nitrogen 16 mg/dL (9-20); Non-African American GFR(CKD) >90 (>60 ml/min/1.73 sqM)
[2023-01-28 15:10] LABS: African American GFR (CKD) >90 (>60 ml/min/1.73 sqM); Blood Urea Nitrogen 14 mg/dL (9-20); Non-African American GFR(CKD) >90 (>60 ml/min/1.73 sqM)
--- NOTE | 2023-01-28 16:23 | CT ---
EXAMINATION TYPE: CT angio chest DATE OF EXAM: 01/28/2023 COMPARISON: 12/10/2022 HISTORY: AAA, without rupture, f/u CT DLP: 532.6 mGycm, Automated exposure control for dose reduction was used. CONTRAST: Performed injected with 100 mL of Isovue 370. TECHNIQUE: Axial images were obtained at 5 mm thick sections. Reconstructed images are reviewed on [employer] computer in the coronal plane. FINDINGS: Portion of the thyroid visualized is normal. No suspicious lung nodules or focal infiltrates are present. No enlarged mediastinal or hilar adenopathy is evident. The ascending aorta diameter at the level o f the main pulmonary artery is 3.3 cm. The main pulmonary artery diameter at the bifurcation is 2.7 cm. Transverse aortic arch 2.4 cm. Descending thoracic aorta at the level of the diaphragm 2.7 cm. There is a moderate size hiatal hernia. Limited CT sections are obtained through the upper abdomen. Abdomen is essentially unremarkable. IMPRESSIONS: 1. There is minimal fusiform prominence with a maximum AP diameter of 2.7 cm of the descending thorac ic aorta. The ascending thoracic aorta has a maximum AP diameter 3.3 cm. No aneurysmal dilatation or dissection is evident.
== END | disposition home or self-care (01) ==
LOC: RADCTMAIN 01-16 13:30 → CATHCVL 13:55
PROVIDERS: ATTEND Internal Medicine Cardiovascular Disease
DX: Z13.9 Encounter for screening, unspecified (principal); I71.20 Thoracic aortic aneurysm, without rupture, unspecified
CPT/HCPCS: 82565 ×2; 84520 ×2; 71275; Q9967

== ENCOUNTER → 2023-10-01 | Outpatient (CLI) | payer MEDICARE, OTHER | END | disposition home or self-care (01) | LOC: LABWHC1 08:21 | PROVIDERS: ATTEND Internal Medicine | DX: Z53.9 Procedure and treatment not carried out, unspecified reason (principal) ==

== ENCOUNTER → 2023-10-01 | Outpatient (CLI) | payer MEDICARE, OTHER ==
--- NOTE | 2023-10-01 08:37 | US ---
EXAMINATION TYPE: US duplex aorta DATE OF EXAM: 10/01/2023 COMPARISON: CT 2020 CLINICAL INDICATION: Male, 73 years old with history of Z86.79 history DISEASES OF THE CIRCULATORY SY STEM; History of AAA distal aorta with stent TECHNIQUE: Multiple sonographic images of the abdominal aorta are obtained. FINDINGS: EXAM MEASUREMENTS: Abdominal Aorta: Proximal: 2.7 x 3.3cm Mid: 2.3 x 2.4cm Distal: 3.7 x 3.8cm, stent seen Bifurcation: Right Illiac: 1.6 x 1.4cm, stent seen Left Illiac: 1.7 x 1.5cm, stent seen Difficult study due to overlying midline bowel gas Distal AAA with stent seen extending into iliacs, mildly aneurysmal proximal aorta IMPRESSION: Abdominal aortic aneurysm as noted.
[2023-10-01 16:48] LABS: ALT 22 U/L (10-49); AST 31 U/L (14-35); Albumin 4.2 g/dL (3.8-4.9); Albumin/Globulin Ratio 1.45 Ratio (1.60-3.17); Alkaline Phosphatase 89 U/L (41-126); BUN/Creat Ratio 15.71 Ratio (12.00-20.00); Carbon Dioxide 23.7 mmol/L (21.6-31.8); Chloride 104 mmol/L (96-109); Chol/HDL Ratio 1.88 Ratio; Globulin 2.9 g/dL (1.6-3.3); Glucose 126 mg/dL (70-110); LDL Cholesterol,Calculated 43.5 mg/dL (0.0-131.0); Potassium 3.6 mmol/L (3.5-5.5); Sodium 139 mmol/L (135-145); Total Bilirubin 1.3 mg/dL (0.3-1.2); Total Protein 7.1 g/dL (6.2-8.2)
[2023-10-01 16:52] LABS: PSA Annual Screen <0.014 ng/mL (0.000-4.000)
[2023-10-01 17:10] LABS: Acanthocytes 2+; Basophils # (A) 0.01 X 10*3/uL (0.00-0.10); Basophils % (A) 0.3 %; Eosinophils # (A) 0.08 X 10*3/uL (0.04-0.35); Eosinophils % (A) 2.2 %; HCT 36.1 % (39.6-50.0); HGB 12.6 g/dL (13.0-17.0); Immature Platelet Fraction 9.8 % (1.1-6.1); Lymphocytes # (A) 1.02 X 10*3/uL (0.90-5.00); Lymphocytes % (A) 27.9 %; MCH 32.6 pg (27.0-32.0); MCHC 34.9 g/dL (32.0-37.0); MCV 93.5 FL (80.0-97.0); Mean Platelet Volume 11.9 FL (9.5-12.2); Monocytes # (A) 0.28 X 10*3/uL (0.20-1.00); Monocytes % (A) 7.7 %; NRBC Per 100 WBC 0 X 10*3/uL (0.00-0.01); Neutrophils # (A) 2.25 X 10*3/uL (1.80-7.70); Neutrophils % (A) 61.6 %; Platelet Count 39 X 10*3/uL (140-440); RBC 3.86 X 10*6/uL (4.40-5.60); RDW 13.7 % (11.5-14.5); Tear Drop Cells 2+; WBC 3.65 X 10*3/uL (4.50-10.00)
== END | disposition home or self-care (01) ==
LOC: RADUSWWP 07:59
PROVIDERS: ATTEND Internal Medicine
DX: I71.40 Abdominal aortic aneurysm, without rupture, unspecified (principal); Z86.79 Personal history of other diseases of the circulatory system
CPT/HCPCS: 86803; 80061; 80053; 84443; 85025; 83036; 93979; G0103

== ENCOUNTER 2023-10-25 15:19 | Emergency (ER) | payer MEDICARE, OTHER ==
--- NOTE | 2023-10-25 16:29 | ED ---
General Adult HPI - General Chief complaint: Abdominal Pain Stated complaint: Lump above belly button Time Seen by Provider: 10/25/23 15:33 Source: patient, RN notes reviewed Mode of arrival: ambulatory Limitations: no limitations - History of Present Illness Initial comments: 73-year-old male presents emergency department for evaluation of lump to his belly button. He states that this has been there for about 4 days. Patient notes that this is about the size of a nickel. He denies any pain with this. He denies nausea, vomiting. He reports normal bowel movements. Last bowel movement was today. He denies fever, chills, redness to the area. - Related Data Home Medications Medication Instructions Recorded Confirmed carvediloL [Coreg] 3.125 mg PO BID 04/11/21 01/27/23 Aspirin 81 mg PO DAILY 06/19/22 01/27/23 Allergies Allergy/AdvReac Type Severity Reaction Status Date / Time No Known Allergies Allergy Verified 01/27/23 11:05 Review of Systems ROS Statement: Those systems with pertinent positive or pertinent negative responses have been documented in the HPI. ROS Other: All systems not noted in ROS Statement are negative. Past Medical History Past Medical History: Cancer, Hypertension, Prostate Disorder Additional Past Medical History / Comment(s): hx. low WBCs and low platelets- stable now per pt., hx Prostate CA-radiation tx received 2018, thoracic aneurysm History of Any Multi-Drug Resistant Organisms: None Reported Past Surgical History: Back Surgery, Coronary Bypass/CABG Additional Past Surgical History / Comment(s): AAA-repaired,CABG-3 vessel 2005 Past Anesthesia/Blood Transfusion Reactions: No Reported Reaction Past Psychological History: No Psychological Hx Reported Smoking Status: Former smoker - Past Family History Mother Family Medical History: No Reported History General Exam Limitations: no limitations General appearance: alert, in no apparent distress Head exam: Present: atraumatic, normocephalic, normal inspection Eye exam: Present: normal appearance, PERRL, EOMI. Absent: scleral icterus, conjunctival injection, periorbital swelling ENT exam: Present: normal exam, mucous membranes moist Neck exam: Present: normal inspection. Absent: tenderness, meningismus, lymphadenopathy Respiratory exam: Present: normal lung sounds bilaterally. Absent: respiratory distress, wheezes, rales, rhonchi, stridor Cardiovascular Exam: Present: regular rate, normal rhythm, normal heart sounds. Absent: systolic murmur, diastolic murmur, rubs, gallop, clicks GI/Abdominal exam: Present: soft, normal bowel sounds, hernia (1 1/2 cm umbilical hernia that is easily reduced). Absent: distended, tenderness, guarding, rebound, rigid Extremities exam: Present: normal inspection, full ROM, normal capillary refill. Absent: tenderness, pedal edema, joint swelling, calf tenderness Back exam: Present: normal inspection Neurological exam: Present: alert, oriented X3 Psychiatric exam: Present: normal affect, normal mood Skin exam: Present: warm, dry, intact, normal color. Absent: rash Course Vital Signs 10/25/23 10/25/23 10/25/23 15:21 16:24 16:59 Pulse Rate 74 58 L 58 L Respiratory 16 20 20 Rate Blood Pressure 219/77 178/89 170/90 O2 Sat by Pulse 98 99 97 Oximetry Medical Decision Making - Medical Decision Making Was pt. sent in by a medical professional or institution (, PA, BLUEPRINT TRIMMER, urgent care, hospital, or correction...) When possible be specific @ -No Did you speak to anyone other than the patient for history (EMS, parent, family, police, friend...)? What history was obtained from this source @ -No Did you review nursing and triage notes (agree or disagree)? Why? @ -I reviewed and agree with nursing and triage notes Were old charts reviewed (outside hosp., previous admission, EMS record, old EKG, old radiological studies, urgent care reports/EKG's, correction records)? Report findings @ -No old charts were reviewed Differential Diagnosis (chest pain, altered mental status, abdominal pain women, abdominal pain men, vaginal bleeding, weakness, fever, dyspnea, syncope, headache, dizziness, GI bleed, back pain, seizure, CVA, palpatations, mental health, musculoskeletal)? @ -Differential Abdominal Pain Men: Appendicitis, cholecystitis, diverticulosis, ischemic bowel, pancreatitis, hepatitis, UTI, gastroenteritis, AAA, incarcerated hernia, bowel obstruction, constipation, inflammatory bowel, hepatitis, peptic ulcer disease, splenic infarction, perforated viscus, testicular torsion, this is not meant to be an all-inclusive list EKG interpreted by me (3pts min.). @ -None X-rays interpreted by me (1pt min.). @ -None done CT interpreted by me (1pt min.). @ -None done U/S interpreted by me (1pt. min.). @ -None done What testing was considered but not performed or refused? (CT, X-rays, U/S, labs)? Why? @ -Abdominal imaging was considered, patient is not having any pain at this, clinical diagnosis made What meds were considered but not given or refused? Why? @ -None Did you discuss the management of the patient with other professionals (prof cosby i.e. , PA, BLUEPRINT TRIMMER, lab, RT, psych nurse, social work instructor, design tech, teacher, security vehicle patrol officer, rifle case repairer)? Give summary @ -No Was smoking cessation discussed for >3mins.? @ -No Was critical care preformed (if so, how long)? @ -No Were there social determinants of health that impacted care today? How? (Homelessness, low income, unemployed, alcoholism, drug addiction, transportation, low edu. Level, literacy, decrease access to med. care, correction, rehab)? @ -No Was there de-escalation of care discussed even if they declined (Discuss DNR or withdrawal of care, Hospice)? DNR status @ -No What co-morbidities impacted this encounter? (DM, HTN, Smoking, COPD, CAD, Cancer, CVA, ARF, Chemo, Hep., AIDS, mental health diagnosis, sleep apnea, morbid obesity)? @ -None Was patient admitted / discharged? Hospital course, mention meds given and route, prescriptions, significant lab abnormalities, going to OR and other pertinent info. @ -discharged. Patient presented to the emergency department for evaluation of bump near his belly button. Patient appears to have a 1 1/2 cm area near the umbilicus that appears to be bulging which is easily reduced. It is nonpainful. Patient is having normal bowel movements, denies nausea, vomiting. Discussed with patient that this is consistent with an umbilical hernia. Advised follow up with his primary care provider. Patient hypertensive in the emergency department. Patient did not take his blood pressure medication today. Advised patient to take discharged. Patient understands the plan. Patient stable condition. Case discussed with Dr. Thayer. Undiagnosed new problem with uncertain prognosis? @ -No Drug Therapy requiring intensive monitoring for toxicity (Heparin, Nitro, Insulin, Cardizem)? @ -No Were any procedures done? @ -No Diagnosis/symptom? @ -umbilical hernia Acute, or Chronic, or Acute on Chronic? @ -acute Uncomplicated (without systemic symptoms) or Complicated (systemic symptoms)? @ -uncomplicated Side effects of treatment? @ -No Exacerbation, Progression, or Severe Exacerbation? @ -No Poses a threat to life or bodily function? How? (Chest pain, [place], [place], pneumonia, PE, COPD, DKA, ARF, appy, cholecystitis, CVA, Diverticulitis, Homicidal, Suicidal, threat to staff... and all critical care pts) @ -No Disposition Clinical Impression: Umbilical hernia Disposition: HOME SELF-CARE Condition: Stable Instructions (If sedation given, give patient instructions): Umbilical Hernia (ED) Additional Instructions: Please follow up with your primary care provider. Return to the emergency department for new or worsening symptoms as discussed. Is patient prescribed a controlled substance at d/c from ED?: No Referrals: Jamir Ferrer MD [Primary Care Provider] - 1-2 days Alexi Fernando MD [Medical Doctor] - 1-2 days
[2023-10-25 16:55] VITALS: PULSE 58; RESP 20
[2023-10-25 17:17] VITALS: BP 170/90
== END 2023-10-25 16:59 | disposition home or self-care (01) ==
LOC: EC 15:19
DX: K42.9 Umbilical hernia without obstruction or gangrene (principal); I10 Essential (primary) hypertension; Z79.82 Long term (current) use of aspirin; Z79.899 Other long term (current) drug therapy; Z87.891 Personal history of nicotine dependence
CPT/HCPCS: 99283

== ENCOUNTER → 2024-11-17 | Outpatient (CLI) | payer MEDICARE, OTHER ==
--- NOTE | 2024-11-18 14:32 | CT ---
EXAMINATION TYPE: CT chest wo con DATE OF EXAM: 11/17/2024 1:44 PM COMPARISON: 01/28/2023 CLINICAL INDICATION: Male, 74 years old with history of R91.1 LUNG NODULE, Lung Nodule. TECHNIQUE: Axial images were obtained at 5 mm thick sections. Reconstructed images are reviewed on [employer] computer in the coronal plane. Contrast used: mL of , (none if empty) Oral contrast used: (none if empty) CT DLP: 500 mGycm, Automated exposure control for dose reduction was used. FINDINGS: Portion of the thyroid visualized is normal. Punctate 0.3 cm density is some minimal compressive atelectasis may be within the dependent right harriet g base. In the posterior lateral right midlung. Series 4 image 40. No enlarged mediastinal or hilar adenopathy is evident. The ascending aorta diameter at the level o f the main pulmonary artery is 3.9 cm. The main pulmonary artery diameter at the bifurcation is 2.8 cm. Mild to moderate coronary artery calcification is present. Limited CT sections are obtained through the upper abdomen. Mild fatty infiltration is within the christopher er. Colon wall thickening at the hepatic flexure may be present. Small gallstones are present calcifi cations within the right lobe liver. Some paraesophageal varices may be present near the gastroesopha geal junction IMPRESSION: 1. Tiny 0.3 cm nodule within some mild compressive atelectasis may be present. Follow-up recommended. 2. Cholelithiasis. 3. Colonic wall thickening at the hepatic flexure may be present. Clinical correlation recommended fo r colitis. [facility], , 11/18/2024 2:29 PM
== END | disposition home or self-care (01) ==
LOC: RADCTMAIN 13:21
PROVIDERS: ATTEND Internal Medicine
DX: R91.1 Solitary pulmonary nodule (principal); K80.20 Calculus of gallbladder without cholecystitis without obstruction; K52.9 Noninfective gastroenteritis and colitis, unspecified
CPT/HCPCS: 71250